=== PATIENT | male | born 2000 | race American Indian/Alaskan Native ===

== ENCOUNTER 2020-10-10 15:13 | Emergency (ER) | payer BC ==
[2020-10-10] MEDS ORDERED: LIDOCAINE 2%/EPINEPHRINE 1:200,000 VIAL (20 ML) INFILTRATI ONE (17:16)
--- NOTE | 2020-10-10 17:19 | Emergency Department Report ---
ED General Adult HPI - General Chief complaint: Earache Stated complaint: BACK OF EAR RING STUCK IN EAR Time Seen by Provider: 10/10/20 17:10 Source: patient Mode of arrival: Ambulatory Limitations: No Limitations - History of Present Illness Initial comments: 20-year-old male patient presents to the emergency department with complaints of soft tissue foreign body. Patient states he removed an earring from his right earlobe yesterday and noticed that the back was stuck. Multiple attempts to remove the earring on his own at home were unsuccessful. Denies fever, ear pain, bleeding, drainage, swelling, warmth, redness. Denies all other complaints at this time. - Related Data Allergies Allergy/AdvReac Type Severity Reaction Status Date / Time No Known Allergies Allergy Unverified 10/10/20 15:19 ED Review of Systems ROS: Stated complaint: BACK OF EAR RING STUCK IN EAR Other details as noted in HPI Other: GENERAL: Negative for fever. CARDIOVASCULAR: Negative for chest pain. PULMONARY: Negative for shortness of breath. GASTROINTESTINAL: Negative for abdominal pain. MUSCULOSKELETAL: Negative for back pain. NEUROLOGICAL: Negative for headache. INTEGUMENTARY: Positive for soft tissue foreign body. ED Past Medical Hx - Past Medical History Previous Medical History?: No - Surgical History Past Surgical History?: Yes Additional Surgical History: hernia repair - Social History Smoking Status: Never Smoker Substance Use Type: None ED Physical Exam - General Limitations: No Limitations - Other Other exam information: General: Awake, appropriately interactive, no acute distress. ENT: Small palpable foreign body to the right earlobe. No protrusion through the skin surface. No overlying warmth or erythema. No fluctuance or drainage. No tenderness on palpation. Neck: Supple. Full range of motion intact. Cardiovascular: Normal peripheral perfusion. Pulmonary: No respiratory distress. Patient is speaking normally without use of accessory muscles. Skin: No apparent rashes or lesions. Neurological: No facial asymmetry. Speech is clear. Follows commands. Patient is alert and oriented. Musculoskeletal: Moves all four extremities spontaneously with normal range of motion. Psych: Cooperative. Appropriate mood and affect. - Foreign Body Removal Ear Foreign Body Suspected: other (earring) Foreign Body Removed: yes Foreign Body Removal Technique: forceps Tympanic Membrane Intact: Yes Patient Tolerated Procedure: well Complications: none Additional Comments: location: right earlobe anesthetized with Lidocaine 2% with epinephrine; 2 cc's small incision made along posterior aspect of right earlobe with #11 blade scalpel; one clear plastic earring was extracted using forceps EBL: < 1 cc ED Medical Decision Making - Medical Decision Making Differential diagnosis including but not limited to: abscess, necrotizing soft tissue infection, retained foreign body, otitis externa On evaluation, patient is stable and symptoms have resolved. Tolerated soft tissue foreign body removal without complications. Please see procedure note for details. Patient was given the option of outpatient referral for ENT to remove the object, since no concomitant infection is present however patient has elected to proceed with foreign body extraction, which was successful. Patient will be discharged home with close outpatient follow-up. Emphasized the importance of refraining from piercing his ears again until at least 6 weeks from today's procedure. Patient expressed understanding and is agreeable to plan of care. Wound care precautions discussed. Strict return precautions provided. Repeat exam is unremarkable and benign. History, exam, diagnostic testing, and current condition do not suggest worrisome pathology to warrant further testing, continued ED treatment, admission, or surgical evaluation at this point. Given the low probability of a significant medical illness, it would be more likely to result in harm than benefit to perform further testing at this stage. Discussed findings, presumptive diagnosis, need for follow-up and specific signs/symptoms that should prompt immediate return to the emergency department. Instructions were explained in detail to the patient in addition to giving written discharge information. Patient expressed understanding and was given the opportunity to ask questions, all of which were satisfactorily answered prior to discharge home. Critical care attestation.: If time is entered above; I have spent that time in minutes in the direct care of this critically ill patient, excluding procedure time. ED Disposition Clinical Impression: Foreign body in ear lobe Qualifiers: Encounter type: initial encounter Laterality: right Qualified Code(s): S00.451A - Superficial foreign body of right ear, initial encounter Disposition: TO HOME OR SELFCARE Is pt being admited?: No Does the pt Need Aspirin: No Condition: Stable Instructions: Ear Foreign Body, [id number] Additional Instructions: Apply antibiotic ointment to affected area 3 times daily. Keep wound clean. Please wait at least 6 weeks before re-piercing your ears. Follow-up with your primary care provider this week. Call tomorrow to schedule an appointment. Return to the emergency department immediately for new or worsening symptoms. Referrals: EFRAÍN RAND MD [Staff Physician] - 3-5 Days Time of Disposition: 18:12
== END 2020-10-10 18:25 | disposition home or self-care (01) ==
LOC: ED 15:13
DX: T16.1XXA Foreign body in right ear, initial encounter (principal); Z98.890 Other specified postprocedural states; X58.XXXA Exposure to other specified factors, initial encounter; Y93.89 Activity, other specified; Y92.89 Other specified places as the place of occurrence of the external cause; Y99.8 Other external cause status
CPT/HCPCS: 99282